=== PATIENT | male | born 1945 | race Caucasian/White ===

== ENCOUNTER → 2017-02-07 | Outpatient (CLI) | payer MEDICARE, BC ==
[~2017-02-07] MED LIST: ASPI-515 PO; ASPI-621 PO; ATOR80TA75 PO; CEPH-368 PO; CHOL20003 PO; CYAN1TAB29 PO; HYDR-3240 PO; LISI40TA PO; METF500T4 PO; METO25TA35 PO; NITR0.3T5 SL; NITR0.4T8 SL; PRAV20TA2 PO; PRAV80TA2 PO; SILD100T PO; TICA90TA PO
== END | disposition home or self-care (01) ==
LOC: LAB 10:45
PROVIDERS: ATTEND Internal Medicine Cardiovascular Disease
DX: I10 Essential (primary) hypertension (principal); E11.40 Type 2 diabetes mellitus with diabetic neuropathy, unspecified; E78.2 Mixed hyperlipidemia
CPT/HCPCS: 36415; 80061; 80076

== ENCOUNTER 2020-04-30 12:57 | Outpatient (CLI) | payer MEDICARE, BC ==
[~2020-04-30 12:57] MED LIST changes: -ASPI-621 PO; +ASPI81TA45 PO; +ATOR-2 PO; -ATOR80TA75 PO; +CHOL2000 PO; -CHOL20003 PO; +METF500T17 PO; -METF500T4 PO; +NITR0.4T28 SL; -NITR0.4T8 SL
== END 2020-04-30 23:59 | disposition home or self-care (01) ==
LOC: CFH 12:57 → EDSTATUS 14:00 → CFH 23:59
PROVIDERS: ATTEND Internal Medicine Cardiovascular Disease
DX: I35.8 Other nonrheumatic aortic valve disorders (principal); I77.810 Thoracic aortic ectasia; I11.9 Hypertensive heart disease without heart failure; I25.10 Atherosclerotic heart disease of native coronary artery without angina pectoris; E78.5 Hyperlipidemia, unspecified; E11.9 Type 2 diabetes mellitus without complications; I25.2 Old myocardial infarction; Z95.5 Presence of coronary angioplasty implant and graft
CPT/HCPCS: 93306

== ENCOUNTER → 2021-04-15 | Outpatient (CLI) | payer MEDICARE, BC ==
[~2021-04-15] MED LIST changes: -ASPI-515 PO; +ASPI-963 PO; +HYDR-2214 PO; -HYDR-3240 PO; -LISI40TA PO; +LISI40TA9 PO
== END | disposition home or self-care (01) ==
LOC: CFH 11:02
PROVIDERS: ATTEND Internal Medicine Cardiovascular Disease
DX: I35.8 Other nonrheumatic aortic valve disorders (principal); I21.02 ST elevation (STEMI) myocardial infarction involving left anterior descending coronary artery; I11.9 Hypertensive heart disease without heart failure; E78.5 Hyperlipidemia, unspecified; I25.10 Atherosclerotic heart disease of native coronary artery without angina pectoris
CPT/HCPCS: 93306